=== PATIENT | male | born 1940 | race Caucasian/White ===

== ENCOUNTER 2018-10-04 02:46 | Outpatient (CLI) | payer MEDICARE, OTHER, SELFPAY ==
[2018-10-04 07:57] LABS: HCT 41.6 % (40.0-50.0); HGB 13.7 g/dL (13.5-17.5); Mean Corp. HGB Concentration 32.9 g/dL (32.0-36.0); Mean Corpuscular Hemoglobin 27.2 pg (27.0-33.0); Mean Corpuscular Volume 82.5 fL (80-95); Mean Platelet Volume 11.2 fL (8.0-11.0); Platelet Count 212 x1000/uL (130-400); RBC 5.04 m/cumm (4.50-6.00); RBC Distribution Width 17.1 % (11.8-14.1)
[2018-10-04 08:15] LABS: Bilirubin Negative (Negative); Blood Negative (Negative); Clarity Clear (Clear); Glucose Negative (Negative); Ketones Negative (Negative); Leukocyte Esterase Negative (Negative); Nitrite Negative (Negative); Urobilinogen 0.2 EU/dL (Up TO 0.2)
[2018-10-04 08:49] LABS: PTT Activated 24.4 sec (21.0-31.4); Prothrombin Time 9.9 sec (9.3-11.0)
[2018-10-04 08:52] LABS: ALT 26 U/L (12-78); AST 15 U/L (15-37); Albumin 3.4 g/dL (3.4-5.0); Alkaline Phosphatase 86 U/L (46-116); Anion Gap 7.1 mmol/L (3-11); BUN 16 mg/dL (7-18); Bilirubin, Total 0.6 mg/dL (0.2-1.0); CO2 28.9 mmol/L (21.0-32.0); CREATININE 1.27 mg/dL (0.70-1.30); Calcium 8.9 mg/dL (8.5-10.1); Chloride 107 mmol/L (98-107); Estimated GFR 54.71 (mL/min/1.73m2); Glucose 98 mg/dL (70-100); Potassium 4.2 mmol/L (3.5-5.1); Sodium 143 mmol/L (136-145); Total Protein 6.8 g/dL (6.4-8.2)
== END 2018-10-04 03:06 ==
PROVIDERS: PCP General Practice; Visit Provider Urology
DX: N40.1 Benign prostatic hyperplasia with lower urinary tract symptoms (principal); R79.1 Abnormal coagulation profile; N39.0 Urinary tract infection, site not specified; Z01.812 Encounter for preprocedural laboratory examination; Z01.818 Encounter for other preprocedural examination
CPT/HCPCS: 36415; 80053; 85027; 81003; 85610; 85730; 87086

== ENCOUNTER 2019-11-17 07:26 | Outpatient (CLI) | payer MEDICARE, OTHER, SELFPAY ==
--- NOTE | 2019-11-17 | DI.RAD_ITS ---
EXAM: XR SHOULDER RT COMPLETE 2+V XR humerus RT CLINICAL HISTORY: RT SHOULDER PAIN, M25.551. TECHNIQUE: 2D digital imaging was performed. COMPARISON: No priors for comparison. FINDINGS: No acute fracture or dislocation. Mild degenerative changes are seen at both the acromioclavicular a nd glenohumeral joints. There is a small spur at the inferior surface of the acromion. The bones ar e normally mineralized. The patient was unable to complete an axillary view due to discomfort. No s uspicious lytic or sclerotic lesions are present. IMPRESSION: Degenerative changes of the right shoulder. DATA REPOSITORY: RADIATION DOSE DELIVERED:
== END 2019-11-17 07:46 ==
PROVIDERS: Visit Provider Internal Medicine
DX: M19.011 Primary osteoarthritis, right shoulder (principal)
CPT/HCPCS: 73030; 73060